=== PATIENT | female | born 1995 | race Caucasian/White ===

== ENCOUNTER 2023-10-05 16:47 | Emergency (ER) | payer OTHER ==
[~2023-10-05] VITALS: Ht 162.6 cm; Wt 56.7 kg
[2023-10-05] MEDS ORDERED: ONDANSETRON 4 MG TAB.RAPDIS ONE (17:27)
[2023-10-05] MEDS: ONDANSETRON 4 MG TAB.RAPDIS PO ONE (17:28)
[2023-10-05] MEDS: ACETAMINOPHEN ES 500 MG TABLET PO ONE (18:31)
[2023-10-05 18:34] VITALS: BP 123/82; TEMP 98.3; O2SAT 99
== END 2023-10-05 18:35 | disposition home or self-care (01) ==
LOC: ER 16:49
DX: S09.8XXA Other specified injuries of head, initial encounter (principal); F17.200 Nicotine dependence, unspecified, uncomplicated; R11.2 Nausea with vomiting, unspecified; R42 Dizziness and giddiness; W22.8XXA Striking against or struck by other objects, initial encounter; Y93.89 Activity, other specified; Y92.89 Other specified places as the place of occurrence of the external cause; Y99.8 Other external cause status
CPT/HCPCS: 99283; Q0162